=== PATIENT | female | born 1930 | race Caucasian/White ===

== ENCOUNTER 2016-03-27 14:43 | Inpatient (IN) | payer OTHER ==
[~2016-03-27] VITALS: Ht 172.7 cm; Wt 72.0 kg
[~2016-03-27 14:43] MED LIST: ABILIFY2 MG PO; ADULT LOW DOSE81 M1 PO; ASCORBIC ACID500 M3 PO; ASPIRIN81 M1 PO; Ascorbic Acid,Ester- PO; Aspirin E.C. PO; Aspirin PO; BETHANECHOL CHL25 MG PO; BUSPIRONE HCL PO; BUSPIRONE HCL15 MG PO; Bethanechol Chloride PO; CALCIUM 600 +1 EAC1 PO; CELEBREX200 MG PO; CELEBREX50 MG PO; DETROL1 MG PO; DIGOXIN250 MCG PO; Desyrel PO; Digoxin PO; GARLIC1000 MG PO; Garlic PO; INDERAL40 MG PO; LANOXIN,DIG0.0625 MG PO; Lanoxin,Digitek PO; METHIMAZOLE10 MG PO; Methimazole PO; NIZATIDINE150 MG PO; OCUVITE EXTRA1 EACH PO; OCUVITE1 TABLET PO; Ocuvite PO; PRAVACHOL40 MG PO; PRAVASTATIN SOD40 MG PO; PREMARIN0.3 MG PO; PROPRANOLOL HCL40 MG PO; Pepcid PO; Propranolol HCl PO; THERAGRAN1 TABLET PO; TYLENOL EXTRA500 MG PO; Urecholine PO; VITAMIN A10000 UNIT PO; VITAMIN B-12500 MCG PO; VITAMIN B12-FO1 EACH PO; VITAMIN C500 M5 PO; VITAMIN E400 UNI1 PO; VITAMIN E400 UNIT PO; Vibramycin, Doryx PO; Vitamin A PO; Vitamin B-12 PO; Zocor PO; celeBREX PO; risperDAL PO
[2016-03-27 15:35] LABS: HEMATOCRIT 36.6 % (36.0-46.0); MCH 30.2 PG (29.0-34.0); MCHC 32.5 G/DL (30.0-36.0); MCV 92.9 FL (83-99); PLATELET COUNT 166 K/uL (156-360); RBC DIS.WIDTH-CV 14.9 % (11.8-14.6); RBC DIS.WIDTH-SD 48.8 % (39-53); RED BLOOD COUNT 3.94 M/uL (3.80-5.20); WHITE BLOOD COUNT 7.3 K/uL (4.1-10.2)
[2016-03-27 15:45] LABS: CHLORIDE 105 mEq/L (99-109); POTASSIUM 3.6 mEq/L (3.7-5.4); SODIUM 139 mEq/L (136-147)
[2016-03-27 15:47] LABS: GLUCOSE 141 mg/dL (70-99)
[2016-03-27 15:49] LABS: ANION GAP 11 MEQ/L (2-14)
[2016-03-27 15:51] LABS: GFR ESTIMATE (CALCULATED) > 59 mL/min/
[2016-03-27 15:52] LABS: UREA NITROGEN (BUN) 10 mg/dL (9-23)
[2016-03-27] MEDS ORDERED: VITAMIN A8000 UNIT PO (17:30)
[2016-03-27] MEDS ORDERED: URECHOLINE25 MG PO (17:31)
[2016-03-27] MEDS ORDERED: CELEBREX200 MG PO (17:31)
[2016-03-27] MEDS ORDERED: CO Q-10400 MG PO (17:32)
[2016-03-27] MEDS ORDERED: RISPERDAL1 MG PO (17:32)
[2016-03-27] MEDS ORDERED: VITAMIN B-12500 MC5 SL (17:32)
[2016-03-27] MEDS ORDERED: ASCORBIC ACID500 M3 PO (17:33)
[2016-03-27] MEDS ORDERED: TYLENOL EXTRA500 MG PO (17:33)
[2016-03-27] MEDS ORDERED: DAILY GARLIC O400 MG PO (17:33)
[2016-03-27] MEDS ORDERED: PRESERVISION T1 EACH PO (17:33)
[2016-03-27] MEDS ORDERED: TEMAZEPAM7.5 MG PO (17:34)
[2016-03-27] MEDS ORDERED: METHIMAZOLE5 MG PO (17:34)
[2016-03-27] MEDS ORDERED: CELEBREX100 MG PO (17:35)
[2016-03-27 18:10] VITALS: BP 142/62
[2016-03-27 19:10] VITALS: BP 149/71; BP 162/79
[2016-03-27 19:20] VITALS: BP 146/84
[2016-03-28] VITALS: BP 101/51
[2016-03-28 00:53] LABS: TROP-I INTERPRETATION NEGATIVE; TROPONIN-I < 0.01 ng/mL (0.0-0.30)
[2016-03-28 04:00] VITALS: BP 104/55
[2016-03-28 06:39] LABS: TROP-I INTERPRETATION NEGATIVE; TROPONIN-I < 0.01 ng/mL (0.0-0.30)
[2016-03-28 06:48] LABS: EOSINOPHIL (%) 2.5 % (0-5); EOSINOPHIL COUNT 0.1 K/uL (0-0.3); HEMATOCRIT 33.9 % (36.0-46.0); IMMATURE GRANULOCYTE (%) 0.2 % (0.0-0.7); MCH 29.3 PG (29.0-34.0); MCHC 31.3 G/DL (30.0-36.0); MCV 93.6 FL (83-99); MEAN PLAT.VOLUME 11.1 uM^3 (9.5-12.4); MONOCYTE (%) 7.9 % (3-12); MONOCYTE COUNT 0.5 K/uL (0-0.8); NEUTROPHIL (%) 53.6 % (45-76); NEUTROPHIL COUNT 3.1 K/uL (1.8-6.4); PLATELET COUNT 141 K/uL (156-360); RBC DIS.WIDTH-CV 15.4 % (11.8-14.6); RBC DIS.WIDTH-SD 52.7 % (39-53); RED BLOOD COUNT 3.62 M/uL (3.80-5.20); WHITE BLOOD COUNT 5.7 K/uL (4.1-10.2)
[2016-03-28 07:12] LABS: ANION GAP 7 MEQ/L (2-14); CHLORIDE 109 MEQ/L (99-109); GFR ESTIMATE (CALCULATED) > 59 mL/min/; POTASSIUM 4.3 MEQ/L (3.7-5.4); SAMPLE HEMOLYSIS CHECK 0; SAMPLE ICTERIC CHECK 0; SAMPLE LIPEMIA CHECK 0; SODIUM 143 MEQ/L (136-147); UREA NITROGEN (BUN) 8 mg/dL (9-23)
[2016-03-28 07:13] LABS: GLUCOSE 102 mg/dL (70-99)
[2016-03-28 08:05] VITALS: BP 117/55
[2016-03-28 11:43] VITALS: BP 120/60
[2016-03-28 16:12] VITALS: BP 122/64
[2016-03-28 19:10] VITALS: BP 127/62
[2016-03-29 00:07] VITALS: BP 107/55
[2016-03-29 04:31] VITALS: BP 90/51
[2016-03-29 08:00] VITALS: BP 126/61
[2016-03-29 11:30] VITALS: BP 116/55
[2016-03-29] MEDS ORDERED: LEVETIRACETAM250 MG PO (13:19)
[2016-03-29 16:00] VITALS: BP 138/67
[2016-03-29 21:44] VITALS: BP 165/75
[2016-03-30 04:00] VITALS: BP 101/51
[2016-03-30 08:56] VITALS: BP 129/61
[2016-03-30] MEDS ORDERED: LEVETIRACETAM250 MG PO (12:06)
[2016-03-30 12:38] VITALS: BP 96/56
== END 2016-03-30 13:53 | disposition home health service (06) | DRG 101 ==
LOC: EME 14:43 → EDOF 17:52 → 5WEST 19:04
PROVIDERS: Emergency Medicine; Internal Medicine
DX: R56.9 Unspecified convulsions (principal); G20 Parkinson's disease; R55 Syncope and collapse; Z86.718 Personal history of other venous thrombosis and embolism; I10 Essential (primary) hypertension; R78.5 Finding of other psychotropic drug in blood; F03.90 Unspecified dementia, unspecified severity, without behavioral disturbance, psychotic disturbance, mood disturbance, and anxiety
CPT/HCPCS: 70450; 80048; 81003; 84484; 85025; 85027; 93005; 93880; 99281; 99285; G0378; G8978 GP CI; G8979 GP CH; G8980 GP CI; G8987 GO CJ; G8988 GO CH; G8989 CJ; J1650; J3480; J7030; J7040

== ENCOUNTER 2016-06-27 12:11 | Inpatient (IN) | payer OTHER ==
[~2016-06-27] VITALS: Ht 172.7 cm; Wt 77.7 kg
[~2016-06-27 12:11] MED LIST changes: +CELEBREX100 MG PO; +CO Q-10400 MG PO; +DAILY GARLIC O400 MG PO; +LEVETIRACETAM250 MG PO; +METHIMAZOLE5 MG PO; +PRESERVISION T1 EACH PO; +RISPERDAL1 MG PO; +TEMAZEPAM7.5 MG PO; +URECHOLINE25 MG PO; +VITAMIN A8000 UNIT PO; +VITAMIN B-12500 MC5 SL
[2016-06-27 13:51] LABS: ADD MIUA? NO; BILIRUBIN NEGATIVE; BLOOD NEGATIVE; COLOR STRAW ((YELLOW)); GLUCOSE (STRIP) NEGATIVE; KETONES NEGATIVE; LEUKOCYTES NEGATIVE; NITRITE NEGATIVE; PROTEIN (STRIP) NEGATIVE; SPECIFIC GRAVITY 1.003 (1.000-1.030); UCUL ADDED? NO; UROBILINOGEN 0.2 MG/DL (0.2-1.0)
[2016-06-27 14:32] LABS: EOSINOPHIL (%) 1.9 % (0-5); EOSINOPHIL COUNT 0.1 K/uL (0-0.3); HEMATOCRIT 36.1 % (36.0-46.0); IMMATURE GRANULOCYTE (%) 0.2 % (0.0-0.7); INSTRUMENT ABS NEUTROPHIL CT 3.3 K/uL; LYMPHOCYTE COUNT 1.6 K/uL (1.0-2.8); MCH 30.1 PG (29.0-34.0); MCV 91.2 FL (83-99); MEAN PLAT.VOLUME 10.1 uM^3 (9.5-12.4); MONOCYTE (%) 12.5 % (3-12); MONOCYTE COUNT 0.7 K/uL (0-0.8); NEUTROPHIL (%) 57.2 % (45-76); NEUTROPHIL COUNT 3.3 K/uL (1.8-6.4); PLATELET COUNT 145 K/uL (156-360); RBC DIS.WIDTH-CV 13.6 % (11.8-14.6); RBC DIS.WIDTH-SD 45.6 % (39-53); RED BLOOD COUNT 3.96 M/uL (3.80-5.20); WHITE BLOOD COUNT 5.8 K/uL (4.1-10.2)
[2016-06-27 14:48] LABS: CHLORIDE 102 mEq/L (99-109); POTASSIUM 4.1 mEq/L (3.7-5.4); SODIUM 141 mEq/L (136-147)
[2016-06-27 14:50] LABS: GLUCOSE 107 mg/dL (70-99)
[2016-06-27 14:52] LABS: ANION GAP 13 MEQ/L (2-14)
[2016-06-27 14:54] LABS: ALKALINE PHOSPHATASE 76 IU/L (3-129); GFR ESTIMATE (CALCULATED) > 59 mL/min/
[2016-06-27 14:55] LABS: UREA NITROGEN (BUN) 8 mg/dL (9-23)
[2016-06-27] MEDS ORDERED: KEPPRA500 MG PO (16:54)
[2016-06-27] MEDS ORDERED: CALCIUM600 M1 PO (16:55)
[2016-06-27] MEDS ORDERED: DAILY GARLIC O400 MG PO (16:57)
[2016-06-27] MEDS ORDERED: VITAMIN B-6100 MG PO (16:57)
[2016-06-27] MEDS ORDERED: PRESERVISION S1 EACH PO (16:58)
[2016-06-27] MEDS ORDERED: VITAMIN D31000 UNIT PO (16:58)
[2016-06-27] MEDS ORDERED: CO Q-10100 MG PO (16:58)
[2016-06-27] MEDS ORDERED: VITAMIN E400 UNIT PO (16:59)
[2016-06-27] MEDS ORDERED: LUTEIN20 MG PO (16:59)
[2016-06-27] MEDS ORDERED: FISH OIL OMEGA1 EAC1 PO (16:59)
[2016-06-27] MEDS ORDERED: CEPHALEXIN500 MG PO (17:00)
[2016-06-27] MEDS ORDERED: TRAMADOL HCL50 MG PO (17:00)
[2016-06-27] MEDS ORDERED: NIZATIDINE150 MG PO (17:00)
[2016-06-27] MEDS ORDERED: FLEXERIL5 MG PO (17:00)
[2016-06-27 20:01] VITALS: BP 144/74
[2016-06-27 23:35] VITALS: BP 142/70
[2016-06-28 05:54] LABS: MCH 29.4 PG (29.0-34.0); MCHC 31.8 G/DL (30.0-36.0); MCV 92.6 FL (83-99); MEAN PLAT.VOLUME 10.5 uM^3 (9.5-12.4); PLATELET COUNT 132 K/uL (156-360); RBC DIS.WIDTH-CV 13.7 % (11.8-14.6); RBC DIS.WIDTH-SD 46.8 % (39-53); RED BLOOD COUNT 3.67 M/uL (3.80-5.20); WHITE BLOOD COUNT 5.2 K/uL (4.1-10.2)
[2016-06-28 06:15] LABS: ANION GAP 8 MEQ/L (2-14); CHLORIDE 100 MEQ/L (99-109); GFR ESTIMATE (CALCULATED) > 59 mL/min/; GLUCOSE 106 mg/dL (70-99); POTASSIUM 3.8 MEQ/L (3.7-5.4); SAMPLE HEMOLYSIS CHECK 0; SAMPLE ICTERIC CHECK 0; SAMPLE LIPEMIA CHECK 0; SODIUM 138 MEQ/L (136-147); UREA NITROGEN (BUN) 10 mg/dL (9-23)
[2016-06-28 08:28] VITALS: BP 127/69
[2016-06-28 11:43] VITALS: BP 114/68
[2016-06-28 16:00] VITALS: BP 127/68
[2016-06-28 23:38] VITALS: BP 143/75
[2016-06-29 07:30] LABS: Estimated Average Glucose 120 mg/dL (70-123); HEMOGLOBIN A1c (GLYCOHEMOGLOB) 5.8 % HGB (Below 5.7)
[2016-06-29 08:19] VITALS: BP 134/69
[2016-06-29 15:38] VITALS: BP 131/66
[2016-06-30 00:10] VITALS: BP 118/66
[2016-06-30 08:31] VITALS: BP 131/71
[2016-06-30 16:34] VITALS: BP 119/67
[2016-07-01 08:16] VITALS: BP 134/79
[2016-07-01 15:58] VITALS: BP 120/68
== END 2016-07-01 16:00 | DRG 543 ==
LOC: EME → EDBD 12:11 → EME 12:11 → 3EAST 17:34 → EDOF 17:34 → 3EAST 19:43
PROVIDERS: Emergency Medicine; Internal Medicine
DX: M48.56XA Collapsed vertebra, not elsewhere classified, lumbar region, initial encounter for fracture (principal); I47.1 Supraventricular tachycardia; F05 Delirium due to known physiological condition; M48.54XA Collapsed vertebra, not elsewhere classified, thoracic region, initial encounter for fracture; M51.36 Other intervertebral disc degeneration, lumbar region; D64.9 Anemia, unspecified; M51.34 Other intervertebral disc degeneration, thoracic region; G20 Parkinson's disease; M54.89 Other dorsalgia; G40.909 Epilepsy, unspecified, not intractable, without status epilepticus; L89.510 Pressure ulcer of right ankle, unstageable; E05.10 Thyrotoxicosis with toxic single thyroid nodule without thyrotoxic crisis or storm; E78.5 Hyperlipidemia, unspecified; F70 Mild intellectual disabilities; Z60.2 Problems related to living alone; M51.26 Other intervertebral disc displacement, lumbar region; F03.90 Unspecified dementia, unspecified severity, without behavioral disturbance, psychotic disturbance, mood disturbance, and anxiety; Z88.2 Allergy status to sulfonamides; Z91.040 Latex allergy status
CPT/HCPCS: 71010; 72131; 80048; 80053; 81003; 83036; 84443; 85025; 85027; 97530 GO; 97530 GP; 99281; 99285; J1644; J3010

== ENCOUNTER 2016-08-13 13:13 | Emergency (ER) | payer OTHER ==
[~2016-08-13] VITALS: Ht 172.7 cm; Wt 74.7 kg
[~2016-08-13 13:13] MED LIST changes: +CALCIUM600 M1 PO; +CEPHALEXIN500 MG PO; +CO Q-10100 MG PO; +FISH OIL OMEGA1 EAC1 PO; +FLEXERIL5 MG PO; +KEPPRA500 MG PO; +LUTEIN20 MG PO; +PRESERVISION S1 EACH PO; +TRAMADOL HCL50 MG PO; +VITAMIN B-6100 MG PO; +VITAMIN D31000 UNIT PO
[2016-08-13 14:36] LABS: HEMATOCRIT 36.9 % (36.0-46.0); MCH 28.8 PG (29.0-34.0); MEAN PLAT.VOLUME 10.6 uM^3 (9.5-12.4); PLATELET COUNT 136 K/uL (156-360); RBC DIS.WIDTH-CV 14.2 % (11.8-14.6); RBC DIS.WIDTH-SD 46.1 % (39-53)
[2016-08-13 14:37] LABS: WHITE BLOOD COUNT 7.2 K/uL (4.1-10.2)
[2016-08-13 14:45] LABS: CHLORIDE 103 mEq/L (99-109); POTASSIUM 3.9 mEq/L (3.7-5.4); SODIUM 140 mEq/L (136-147)
[2016-08-13 14:47] LABS: GLUCOSE 102 mg/dL (70-99)
[2016-08-13 14:49] LABS: ANION GAP 10 MEQ/L (2-14)
[2016-08-13 14:51] LABS: GFR ESTIMATE (CALCULATED) > 59 mL/min/
[2016-08-13 14:52] LABS: UREA NITROGEN (BUN) 10 mg/dL (9-23)
[2016-08-13 15:00] LABS: TROP-I INTERPRETATION NEGATIVE; TROPONIN-I < 0.01 ng/mL (0.0-0.30)
[2016-08-13 15:34] VITALS: BP 124/81
== END 2016-08-13 15:44 | disposition home or self-care (01) ==
LOC: EME 13:13
PROVIDERS: Emergency Medicine
DX: J20.9 Acute bronchitis, unspecified (principal); J45.909 Unspecified asthma, uncomplicated; E11.9 Type 2 diabetes mellitus without complications; E78.5 Hyperlipidemia, unspecified; I10 Essential (primary) hypertension; K21.9 Gastro-esophageal reflux disease without esophagitis
CPT/HCPCS: 71020; 80048; 83605; 83880; 84484; 85027; 87040; 93005; 99281; 99285

== ENCOUNTER 2017-03-29 11:28 | Emergency (ER) | payer OTHER | END 2017-03-29 11:37 | LOC: EME 11:28 | PROC: 5A12012 Performance of Cardiac Output, Single, Manual (ICD-10-PCS; principal; 2017-03-29) | DX: I46.9 Cardiac arrest, cause unspecified (principal); E11.9 Type 2 diabetes mellitus without complications; E78.5 Hyperlipidemia, unspecified; I10 Essential (primary) hypertension; G20 Parkinson's disease; J45.909 Unspecified asthma, uncomplicated; K21.9 Gastro-esophageal reflux disease without esophagitis; Z91.040 Latex allergy status; Z88.5 Allergy status to narcotic agent; Z88.2 Allergy status to sulfonamides | CPT/HCPCS: 80048; 81003; 82150; 83605; 83690; 84484; 85025; 85610; 85730; 86850; 86900; 86901; 87040; 99281; 99285; G0480; J0461 ==